=== PATIENT | female | born 1960 | race Caucasian/White ===

== ENCOUNTER 2024-01-30 10:37 | Outpatient (CLI) | payer OTHER, SELFPAY ==
--- NOTE | ~2024-01-30 | MR_ITS ---
EXAMINATION: MR lumbar spine wo/w con DATE: 01/30/2024 11:38 INDICATION: Lumbar postlaminectomy syndrome. Chronic low back pain radiating down the left leg. TECHNIQUE: Magnetic resonance imaging (MRI) of the lumbar spine was performed without and with 13 mL MultiHance intravenous contrast. COMPARISON: None FINDINGS: There is 20 degrees levoscoliosis of lumbar spine. There is 4 mm anterolisthesis of L4 on L 5 and L5 on S1. There is a burst fracture of L1 superior endplate with 1/5 loss of height and retropu lsion of bone 1 mm into central spinal canal. There are changes of posterior fusion procedure at L5-S 1 with pedicle screws. There is mildly decreased disc height at L1-L2, severely decreased disc height at L2-L3, moderately decreased disc height at L3-L4, and severely decreased disc height at L4-L5 and L5-S1. The distal spinal cord signal intensity is normal. The conus medullaris is at L1. The followi ng disc levels are specifically discussed: L1-L2: The disc is bulging. There is moderate right and mild left facet joint osteoarthritis. There i s mild bilateral neural foraminal stenosis. There is mild central canal stenosis. L2-L3: The disc is bulging and has an annular fissure. There is mild bilateral facet joint osteoarthr itis. There is moderate right and mild left neural foraminal stenosis. There is mild central canal st enosis. L3-L4: The disc is bulging and has an annular fissure. There is severe bilateral facet joint osteoart hritis. There is mild bilateral neural foraminal stenosis. There is mild central canal stenosis. L4-L5: The disc is bulging with superimposed right central extrusion. There is severe bilateral facet joint osteoarthritis. There is moderate bilateral neural foraminal stenosis. There is mild central c anal stenosis. There is moderate stenosis of the lateral recesses. L5-S1: The disc is bulging and has an annular fissure. There is severe bilateral facet joint osteoart hritis. There is mild bilateral neural foraminal stenosis. There is mild central canal stenosis. IMPRESSION: 1. Acute versus subacute L1 burst fracture. 2. Severe lumbar spondylosis. 3. Posterior fusion procedure at L5-S1. 4. Lumbar levoscoliosis. Reviewed, dictated and finalized at location []
== END 2024-01-30 10:38 | disposition home or self-care (01) ==
LOC: MICIMG 10:39
PROVIDERS: PCP Physician Assistant; Visit Provider Physician Assistant
DX: M96.1 Postlaminectomy syndrome, not elsewhere classified (principal); M48.062 Spinal stenosis, lumbar region with neurogenic claudication; M47.26 Other spondylosis with radiculopathy, lumbar region; Z98.1 Arthrodesis status
CPT/HCPCS: 72158; A9577

== ENCOUNTER 2024-02-06 10:19 | Outpatient (CLI) | payer OTHER, SELFPAY ==
--- NOTE | ~2024-02-06 | XR_ITS ---
3 VIEWS LUMBAR SPINE Ordering provider: Natalee Gautam, GABBI History: . LBP . Comparison: None. FINDINGS: VERTEBRAL BODIES:Degenerative Spine. Postoperative changes in the lower lumbar area. Levoscoliosis. L oss of volume of L1 is seen which may be acute or chronic. MRI evaluation advised. DISK SPACES: Narrowing of the disc L1-L2, L2-L3, L3-L4, L4-L5 and L5-S1. SOFT TISSUES: Atherosclerotic changes of the aorta. IMPRESSION: Loss of height is seen in L1 which is suggestive of a compression fracture which may be acute or research manager pari. MRI evaluation advised. Multilevel degenerative disc disease. Reviewed, dictated and finalized at location [facility] IMPRESSION: Loss of height is seen in L1 which is suggestive of a compression fracture whic h may be acute or chronic. MRI evaluation advised. Multilevel degenerative disc disease.
== END 2024-02-06 10:20 | disposition home or self-care (01) ==
LOC: MICIMG 10:20
PROVIDERS: PCP Physician Assistant; Visit Provider Physician Assistant
DX: M80.88XA Other osteoporosis with current pathological fracture, vertebra(e), initial encounter for fracture (principal); M51.369 Other intervertebral disc degeneration, lumbar region without mention of lumbar back pain or lower extremity pain
CPT/HCPCS: 72110